=== PATIENT | male | born 1940 | race Caucasian/White ===

== ENCOUNTER 2021-11-23 05:54 | Observation (INO) ==
[2021-11-23] MEDS ORDERED: Buffered Lidocaine 1% SYRIN 1 ml INTRADERM ONE (06:00)
[2021-11-23] MEDS ORDERED: Lactated Ringers 1000 ml BAG 1,000 ML IV SCH ×4 (06:00→16:10)
[2021-11-23] MEDS ORDERED: ceFAZolin 2 GM in NS PREMIX 2 GM/100 ML BAG IVPB ONE (06:25)
[2021-11-23] MEDS ORDERED: fentaNYL 250 mcg/5 ml 50 MCG/ML 5 ml VIAL (250 MCG) ONE (07:12)
[2021-11-23] MEDS ORDERED: Midazolam 2 mg/2 ml VIAL 1 mg/ml 2 ml VIAL (2 mg) ONE ×2 (07:12→12:02)
[2021-11-23] MEDS ORDERED: Lidocaine 2% PF 5 ML VIAL ONE ×2 (07:14→12:01)
[2021-11-23] MEDS ORDERED: Phenylephrine IV 10 MG/ML 1 ml VIAL ONE ×2 (07:14→12:01)
[2021-11-23] MEDS ORDERED: Ondansetron 4 mg VIAL 2 MG/ML 2 ml VIAL ONE ×2 (08:18→11:31)
[2021-11-23] MEDS ORDERED: Dexamethasone IV 4 MG/ML VIAL 1 ml VIAL ONE ×2 (08:18→11:31)
[2021-11-23] MEDS ORDERED: HYDROmorphone 1 MG/1 ML SYRINGE IV PRN (08:58)
[2021-11-23] MEDS ORDERED: Naloxone 0.4 mg VIAL 0.4 mg/ml 1 ml VIAL IV PRN (08:58)
[2021-11-23] MEDS ORDERED: Esmolol 10 MG/ML 10 ML (100 mg) ONE (09:00)
[2021-11-23] MEDS ORDERED: Ondansetron 4 mg VIAL 2 MG/ML 2 ml VIAL IV PRN (09:56)
[2021-11-23] MEDS ORDERED: Lactulose 30 ml UDC PO PRN (09:56)
[2021-11-23] MEDS ORDERED: Magnesium Hydroxide LIQ 30 ML UDC PO PRN (09:56)
[2021-11-23] MEDS ORDERED: Ondansetron ODT 4 mg TAB 4 MG TAB PO PRN (09:56)
[2021-11-23] MEDS ORDERED: Digoxin IV 0.5 MG/2 ML AMP (0.25 MG/ML) IV SLOW PU ONE (10:10)
[2021-11-23 11:16] LABS: ABS Lymphocytes 0.4 10^3/ul (1.0-4.8); ABS Monocytes 0.2 10^3/ul (0-0.8); ABS Neutrophils 4.9 10^3/ul (1.5-7.7); Eosinophil % 0.6 %; Hematocrit 40 % (42-52); Hemoglobin 13.2 g/dL (14.0-18.0); Lymphocyte % 7.9 %; Mean Corpuscular HGB Conc 33 g/dL (31-36); Mean Corpuscular Hemoglobin 29 pg (27-31); Mean Corpuscular Volume 86 fL (80-94); Mean Platelet Volume 7.3 fL (7.4-10.4); Nucleated Red Blood Cells % 0.1; Platelet Count 129 10^3/uL (150-450); Red Blood Count 4.64 10^6 /uL (4.18-5.48); Red Cell Distribution Width 14 % (10-15); White Blood Count 5.6 10^3/uL (3.5-10.8)
[2021-11-23 11:42] LABS: INR 1.12 (0.86-1.15)
[2021-11-23 11:57] LABS: Potassium 4.1 mmol/L (3.5-5.0)
[2021-11-23 11:58] LABS: Albumin 3.6 g/dL (3.2-5.2); Albumin/Globulin Ratio 1.7 (1-3); Calcium 8.7 mg/dL (8.6-10.3); Globulin 2.1 g/dL (2-4); HDL Cholesterol 48.1 mg/dL; Total Bilirubin 0.6 mg/dL (0.2-1.0); Total Protein 5.7 g/dL (6.4-8.9); eGFR CKD-EPI 56.4 (>60)
[2021-11-23 12:01] LABS: Magnesium 1.8 mg/dL (1.9-2.7)
[2021-11-23] MEDS ORDERED: fentaNYL 100 mcg/2 ml 50 MCG/ML VIAL ONE (12:02)
[2021-11-23 12:03] LABS: TSH Ultra Thyroid Stim Horm 1.24 mcIU/mL (0.34-5.60)
[2021-11-23 13:17] LABS: High Sensitivity Troponin 1 Hr 16 pg/mL (<20)
[2021-11-23] MEDS ORDERED: Magnesium Sulfate 2 gm BAG 2 GM/50 ML BAG IVPB ONE (14:49)
[2021-11-23] MEDS ORDERED: Morphine 2 MG/ML SYRINGE IV PRN (16:15)
[2021-11-23] MEDS ORDERED: Morphine 2 MG/ML SYRINGE ONE (16:17)
[2021-11-23] MEDS ORDERED: HYDROmorphone 0.5 MG/0.5 ML SYRINGE ONE (17:02)
[2021-11-23] MEDS: ceFAZolin 1 GM ADVAN 1 GM in NS 0.9% 50 ML 50 ML IVPB SCH ×2 (17:03→23:31)
[2021-11-23] MEDS: Magnesium Hydroxide LIQ 30 ML UDC PO SCH (22:05)
[2021-11-24 05:39] LABS: Hematocrit 26 % (42-52); Hemoglobin 9.2 g/dL (14.0-18.0); Mean Platelet Volume 7.7 fL (7.4-10.4); Platelet Count 146 10^3/uL (150-450)
[2021-11-24 05:59] LABS: Calcium 8.2 mg/dL (8.6-10.3); Potassium 4.6 mmol/L (3.5-5.0); eGFR CKD-EPI 50.3 (>60)
[2021-11-24] MEDS ORDERED: Vitamin THERAPEUTIC TAB PO SCH (09:00)
[2021-11-24] MEDS: ceFAZolin 1 GM ADVAN 1 GM in NS 0.9% 50 ML 50 ML IVPB SCH (09:02)
[2021-11-24] MEDS: Magnesium Hydroxide LIQ 30 ML UDC PO SCH (09:05)
[2021-11-24 12:00] VITALS: BP 108/65
[2021-11-24 13:33] LABS: Magnesium 2.1 mg/dL (1.9-2.7)
== END 2021-11-24 15:45 | disposition home or self-care (01) ==
LOC: OR 05:54 → ICU 12:42 → INTOOBSV 12:42 → SSU 15:17
PROVIDERS: ADMIT Orthopaedic Surgery Adult Reconstructive Orthopaedic Surgery; ATTEND Orthopaedic Surgery Adult Reconstructive Orthopaedic Surgery